=== PATIENT | male | born 1955 | race Caucasian/White ===

== ENCOUNTER 2016-11-17 11:58 | Emergency (ER) ==
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
--- NOTE | 2016-11-17 13:22 | EKG Report ---
Test Performed on : 11/17/2016 12:58:33 PM Test Reason : sob Blood Pressure : / mmHG Vent. Rate : 139 BPM Atrial Rate : 139 BPM P-R Int : 140 ms QRS Dur : 072 ms QT Int : 276 ms P-R-T Axes : 071 092 047 degrees QTc Int : 419 ms Sinus tachycardia. Possible Left atrial enlargement Rightward axis Left ventricular hypertrophy Abnormal ECG When compared with ECG of 30-JAN-2016 17:27, Sinus rhythm. has replaced Electronic ventricular pacemaker Vent. rate has increased BY 74 BPM Unconfirmed Result
[2016-11-17 13:24] LABS: MANUAL DIFF NEEDED? NO
[2016-11-17 13:25] LABS: BASO% 0.2 % (0.0-0.8); EOS# 0.14 X1000 (0.0-0.7); EOS% 1.3 % (0.0-10.0); HEMATOCRIT 48.1 % (42.0-52.0); HEMOGLOBIN 16.6 g/dL (14.0-18.0); IMM GRAN# 0.01 X1000 (0.0-0.04); IMM GRAN% 0.1 % (0.0-0.5); LYMPH# 2.51 X1000 (1.2-3.4); LYMPH% 24.1 % (20.5-51.1); MCH 32.1 PG (27-31); MCHC 34.5 g/dL (33-37); MONO# 0.58 X1000 (0.11-0.59); MONO% 5.6 % (1.7-9.3); MPV 10.8 FL (7.4-10.4); NEUT% 68.7 % (42.2-75.2); PLT 296 X1000 (130-400); RBC 5.17 XMIL (4.7-6.1)
[2016-11-17 13:28] LABS: URINE CULTURE PL NEEDED? NO; URINE SOURCE CLEAN CATCH
[2016-11-17 13:32] LABS: BILIRUBIN URINE NEGATIVE (NEGATIVE); BLOOD URINE NEGATIVE (NEGATIVE); CLARITY CLEAR (CLEAR); COLOR YELLOW; GLUCOSE URINE NEGATIVE (NEGATIVE); LEUKOCYTES URINE NEGATIVE (NEGATIVE); NITRITE URINE NEGATIVE (NEGATIVE); PROTEIN URINE NEGATIVE (NEGATIVE); SP GRAVITY URINE 1.015; UROBILINOGEN URINE NORMAL
--- NOTE | 2016-11-17 13:36 | Diag Imaging Result Document ---
PROCEDURE NAME: FLAT/UPRIGHT ABD/1 VIEW CHEST - 11/17/2016 SUPINE AND UPRIGHT ABDOMEN AND 1-VIEW CHEST: FINDINGS: There is gas visible in [id number] distended small bowel. There is gas visible in slightly distended colon. There is soft tissue fullness at the pelvis and lower midline abdomen which may relate to distended urinary bladder. There is no free air identified. Heart size is normal. There is slight tortuosity of the thoracic aorta. There is a tiny right upper lobe calcified granuloma from old granulomatous disease. The lungs, otherwise, appear clear. There is no pleural effusion or pneumothorax seen. IMPRESSION: 1. Nonspecific mild gaseous bowel distention. Soft tissue fullness at the pelvis and midline lower abdomen which may relate to distended urinary bladder. 2. No evidence of acute cardiopulmonary disease. Results discussed with Dr. Gomez. [facility]
[2016-11-17 13:39] LABS: AMYLASE 56 U/L (20-200); LIPASE 21 U/L (13-60)
[2016-11-17 13:43] LABS: AGAP 15; ALBUMIN 3.9 g/dL (3.5-5.0); ALKALINE PHOSPHATASE 104 U/L (32-122); BUN 9 mg/dL (8-22); CALCIUM 10.6 mg/dL (8.8-10.2); CHLORIDE 100 mmol/L (98-107); COSMO 272; GOT 16 U/L (10-34); GPT 16 U/L (10-44); SODIUM 137 mmol/L (136-145); TCO2 22 mmol/L (25-35); TOTAL PROTEIN 6.8 g/dL (6.3-8.3)
[2016-11-17 14:00] LABS: URINE EPITHELIAL CELLS <10 /HPF (<10)
--- NOTE | 2016-11-17 14:11 | Diag Imaging Result Document ---
PROCEDURE NAME: KUB ABDOMEN - 11/17/2016 PORTABLE AP SUPINE ABDOMEN: COMPARISON: Compared with an earlier exam the same day. FINDINGS: There is stable nonspecific mild gaseous bowel distention. There is decreased soft tissue fullness at the pelvis and midline lower abdomen. This may relate to interval decompression of the urinary bladder. IMPRESSION: Nonspecific mild gaseous bowel distention similar to prior. Decreased soft tissue fullness at the pelvis and midline lower abdomen which may relate to interval decompression of the urinary bladder.
[2016-11-17 15:01] VITALS: BP 130/92
== END 2016-11-17 15:00 | disposition home or self-care (01) ==
LOC: P.ED 11:58
DX: K59.03 Drug induced constipation (principal); T40.2X5A Adverse effect of other opioids, initial encounter; R33.9 Retention of urine, unspecified; R00.0 Tachycardia, unspecified; R10.84 Generalized abdominal pain; E78.5 Hyperlipidemia, unspecified; F17.210 Nicotine dependence, cigarettes, uncomplicated; Z71.6 Tobacco abuse counseling
CPT/HCPCS: 51798; 74000; 74022; 80053; 81001; 82150; 83690; 85025; 93005; 99284

== ENCOUNTER 2019-05-10 07:27 | Inpatient (IN) ==
--- NOTE | 2019-05-10 07:49 | PROVIDER DOCUMENTATION ---
HPI-General Adult - General Chief Complaint: Weakness Stated Complaint: Flank Pain Time Seen by Provider: 05/10/19 07:39 Source: patient, EMS Allergies/Adverse Reactions: Patient Allergies Allergy/AdvReac Type Severity Reaction Status Date / Time No Known Allergies Allergy Verified 06/25/17 10:54 Home Medications: Home Medication List Medication Instructions Recorded Confirmed Last Taken Type Amlodipine [Norvasc] 10 mg PO DAILY 06/25/17 06/25/17 Unknown History Ibuprofen [Motrin] 600 mg PO PRN PRN 06/25/17 06/25/17 Unknown History Lorazepam [Ativan] 1 mg PO QHS #7 tablet 06/25/17 Unknown Rx Oxycodone HCl/Acetaminophen 20 each PO 4XDAY 06/25/17 06/25/17 06/25/17 History [Oxycodon-Acetaminophen 7.5-325] SIMVAstatin [Zocor] 10 mg PO DAILY 06/25/17 06/25/17 Unknown History - History of Present Illness -Gen Adult Nature of Presenting Problems: A 63 Y/O MALE PRESENTS WITH C/O PAIN IN HIS LEGS FOR A MONTH. PER PT HE HAS BEEN OUT OF HIS PAIN MEDS AND HIS LEGS ARE HURTING. PER EMS, THE PT HAS HX OF CVA AND R HEMIPARESIS AND FOR THE PAST 1 MONTH HIS MOTILITY HAS SIGNIFICANTLY DECREASED AND IS MOSTLY BED BOUND. PT LIVES ALONE AND THIS MORNING REQUESTED HIS NEIGHBOR TO CALL 911 HE COULD NOT TOLERATE THE PAIN IN THE LEGS. DENIES NAY CP OR SOB OR FEVER OR CHILLS OR ABD PAIN OR NAUSEA OR VOMITING OR CONSTIPATION. PER NEIGHBOR DRINKS ABOUT 1 PINT OF ALCOHOL DAILY. Review of Systems - Adult - REVIEW OF SYSTEMS - ADULT Constitutional: denies: no symptoms reported Eyes: denies: no symptoms reported Ears, Nose, Mouth & Throat: denies: no symptoms reported Cardiovascular: denies: no symptoms reported Respiratory: denies: no symptoms reported Gastrointestinal: denies: no symptoms reported Genitourinary: denies: no symptoms reported Musculoskeletal: reports: see HPI Integumentary: denies: no symptoms reported Neurological: reports: see HPI Psychiatric: denies: no symptoms reported Endocrine: denies: no symptoms reported Hematologic/Lymphatic: denies: no symptoms reported Allergic/Immunologic: denies: no symptoms reported Past History - Adult - PAST MEDICAL HISTORY-ADULT Review of Records: reports: Old Records Reviewed, Nursing Assessment Review, Medications Reviewed, Social history reviewed & non-contributory. Major Childhood Illnesses: reports: denies history Cardiovascular: reports: hyperlipidemia Respiratory: reports: denies history Gastrointestinal: reports: denies history Obstetrical/Gynecological: reports: denies history Genitourinary: reports: denies history Musculoskeletal: reports: denies history Neurological: reports: denies history Endocrine/Immune: reports: denies history Other Conditions: reports: denies history - IMMUNIZATION STATUS Childhood Immunizations: See Nurse Assessment Flu Vaccine: See Nurse Assessment - FAMILY HISTORY Family History: reviewed, not pertinent Physical Exam-General - PHYSICAL EXAM-ADULT Initial Vital Signs Reviewed: Yes - CONSTITUTIONAL General Appearance: alert, no apparent distress, other (UNKEPT) - EYES Eyes: PERRL/EOMI - HEAD, EARS, NOSE, MOUTH & THROAT HENMT: normocephalic/atraumatic, normal ENT inspection. negative: moist mucous membranes, pharyngeal erythema - NECK Neck: supple - RESPIRATORY Respiratory: lungs clear, normal breath sounds, no respiratory distress, no accessory muscle use - CARDIOVASCULAR Cardiovascular: normal peripheral pulses, no edema, JVD, tachycardia - GASTROINTESTINAL (ABDOMEN) Abdominal Exam: non tender, soft, no pulsatile mass - MUSCULOSKELETAL Back Exam: no vertebral tenderness Extremity: no pedal edema, normal capillary refill, tenderness (ON PALPATION OF BOTH FEET, LEGS TENDER WITH MINIMAL PRESSURE). negative: non-tender Peripheral Pulses: radial (R): 2+, radial (L): 2+, dorsalis-pedis (R): 2+, dorsalis-pedis (L): 2+ - SKIN Integumentary: normal color, warm/dry - NEUROLOGIC Neurologic: grossly normal, motor weakness (ON THE RIGHT AT BASELINE) - PSYCHIATRIC Psych/Mental Status: normal mood/affect, normal thought content, normal thought process, oriented x 3, disheveled Progress - PLAN OF CARE/RESULTS Progress/Plan/Lab Results: Vital Signs - 8 hr 05/10/19 07:31 Temperature 98.2 F Pulse Rate 125 H Respiratory Rate 16 Blood Pressure 113/086 O2 Sat by Pulse Oximetry 96 Orders Category Date Time Status CHEST-1 VIEW [RAD] Stat Exams 05/10/19 07:39 Ordered CBC WITH ELECTRONIC DIFF [HEME] Stat Lab 05/10/19 07:39 Uncollected COMPREHENSIVE METABOLIC PANEL [CHEM] Stat Lab 05/10/19 07:39 Uncollected LACTATE, PLASMA [CHEM] Stat Lab 05/10/19 07:39 Uncollected UA NIMS W/REFLEX CULT PL [URINALYSIS] Stat Lab 05/10/19 07:39 Uncollected URINE DRUG SCREEN PL Stat Lab 05/10/19 07:41 Uncollected Result Diagrams: 05/10/19 07:35 05/10/19 07:35 - EKG 1 Time of EKG reading by physician:: 07:59 EKG Interpretation (*Must complete 3 of following elements*): Abnormal Rate: 123 Rhythm: NSR ST Wave: depressed Prior EKG Comparison: no prior EKG Comments: SINUS TACHYCARDIA AND INFERIO LATERAL ISCHEMIC CHANGES. NO STEMI - CONSULTS/PCP/HOSPITALIST Notification #1 *Consult/PCP/Hospitalist*: d/w Dr Potter and Angie ISLAS Time Discussed: 14:15 Consult Disposition: Admit Departure - Departure Date of Disposition Decision: 05/10/19 Time of Disposition Decision: 14:30 DIAGNOSIS: UTI (urinary tract infection), Alcohol abuse, Failure to thrive in adult Disposition: ADMITTED INPATIENT 09 Certified Medical Emergency: Emergent Condition: Stable - Critical Care Note This patient required my direct & personal management of CC.: No Attestation - Physician/ EDER Attestation Patient care was provided by Advanced Practice Provider:: No The physician spent face to face time with patient:: Yes Advanced Practice Provider documentation review:: Supervising physician onsite and consulted in the evaluation and care of this patient. The physician did have a face to face encounter with the patient.
[2019-05-10 08:08] LABS: BASO# 0.01 X1000 (0.0-0.2); BASO% 0.1 % (0.0-0.8); HEMATOCRIT 37.4 % (42.0-52.0); HEMOGLOBIN 12.8 g/dL (14.0-18.0); IMM GRAN# 0.03 X1000 (0.0-0.04); IMM GRAN% 0.4 % (0.0-0.5); LYMPH# 1.32 X1000 (1.2-3.4); LYMPH% 16.5 % (20.5-51.1); MCH 41.6 PG (27-31); MCHC 34.2 g/dL (33-37); MCV 121.4 FL (81-99); MONO# 0.55 X1000 (0.11-0.59); MONO% 6.9 % (1.7-9.3); MPV 10.9 FL (7.4-10.4); NEUT# 6.08 X1000 (1.4-6.5); NEUT% 76.1 % (42.2-75.2); PLT 147 X1000 (130-400); RBC 3.08 XMIL (4.7-6.1); RDW 14.5 % (11.5-14.5); WBC 7.99 X1000 (4.8-10.8)
[2019-05-10] MEDS ORDERED: M.V.I.-12 10 ML, FOLIC ACID 1 MG, MAGNESIUM SULFATE 1 GM, THIAMINE 100 MG in NS 1,000 ML IV ONE (08:16)
[2019-05-10 08:37] LABS: ESTIMATED GFR > 60
[2019-05-10 08:38] LABS: AGAP 33; ALBUMIN 4.2 g/dL (3.5-5.0); ALKALINE PHOSPHATASE 84 U/L (32-122); BUN 18 mg/dL (8-22); CALCIUM 8.7 mg/dL (8.8-10.2); CHLORIDE 82 mmol/L (98-107); COSMO 275; CREATININE 0.7 mg/dL (0.7-1.2); GLUCOSE 150 mg/dL (70-104); GOT 78 U/L (10-34); GPT 46 U/L (10-44); POTASSIUM 3.7 mmol/L (3.5-5.1); SODIUM 135 mmol/L (136-145); TCO2 20 mmol/L (25-35); TOTAL PROTEIN 6.4 g/dL (6.3-8.3)
[2019-05-10] MEDS ORDERED: CARDIZEM IV ONE (09:20)
[2019-05-10] MEDS ORDERED: LOPRESSOR IV ONE (09:40)
[2019-05-10 10:03] LABS: BILIRUBIN URINE NEGATIVE (NEGATIVE); BLOOD URINE 4+ (NEGATIVE); CLARITY CLEAR (CLEAR); COLOR AMBER; GLUCOSE URINE NEGATIVE (NEGATIVE); KETONE URINE 3+(Large) mg/dL (NEGATIVE); LEUKOCYTES URINE TRACE (NEGATIVE); NITRITE URINE POSITIVE (NEGATIVE); PH URINE 6.5; PROTEIN URINE 2+(100 mg/dL) mg/dL (NEGATIVE); SP GRAVITY URINE 1.015; UROBILINOGEN URINE 4 mg/dL
[2019-05-10 10:09] LABS: UR AMPHETAMINES QUAL NONE DETECTED (NONE DETECT); UR BARBITUATES QUAL NONE DETECTED (NONE DETECT); UR BENZODIAZEPIN QUAL NONE DETECTED (NONE DETECT); UR CANNABINOIDS QUAL NONE DETECTED (NONE DETECT); UR COCAINE QUAL NONE DETECTED (NONE DETECT); UR METHADONE QUAL NONE DETECTED (NONE DETECT); UR METHAMPHETAMINE QUAL NONE DETECTED (NONE DETECT); UR OPIATES QUAL NONE DETECTED (NONE DETECT); UR OXYCODONE QUAL NONE DETECTED (NONE DETECT); UR PCP QUAL NONE DETECTED (NONE DETECT); UR PROPOXYPHENE QUAL NONE DETECTED (NONE DETECT); UR TCA QUAL NONE DETECTED (NONE DETECT)
[2019-05-10 10:13] LABS: URINE BACTERIA 3+ /HFP; URINE EPITHELIAL CELLS <10 /HPF (<10); URINE RBC 20-40 /HPF (<10); URINE SOURCE CATH
--- NOTE | 2019-05-10 10:26 | Diag Imaging Result Doc PS360 ---
EXAM: CHEST-1 VIEW - 05/10/2019 HISTORY: LEG PAIN TECHNIQUE: Portable chest COMPARISON: 06/25/2017 FINDINGS: Heart size is normal. The lungs appear essentially clear. There is no pleural effusion or pneumothorax identified. IMPRESSION: No evidence of acute disease. Electronically signed by Ivan Martin 05/10/2019 10:24 AM
[2019-05-10] MEDS ORDERED: ROCEPHIN 1 GM in NS 50 ML IV ONE (12:52)
--- NOTE | 2019-05-10 13:23 | EKG Report ---
Test Performed on : 05/10/2019 09:37:00 AM Test Reason : CP Blood Pressure : / mmHG Vent. Rate : 121 BPM Atrial Rate : 178 BPM P-R Int : 000 ms QRS Dur : 078 ms QT Int : 322 ms P-R-T Axes : 000 061 074 degrees QTc Int : 457 ms Atrial flutter. with variable AV block. Nonspecific ST and T wave abnormality Abnormal ECG When compared with ECG of 10-MAY-2019 07:57, (Unconfirmed) Atrial flutter. has replaced Sinus rhythm. T wave inversion no longer evident in Inferior leads Nonspecific T wave abnormality, worse in Lateral leads Unconfirmed Result
[2019-05-10] MEDS ORDERED: ZOFRAN IV PRN (14:19)
[2019-05-10] MEDS ORDERED: NS 1,000 ML IV ONE (14:22)
[2019-05-10] MEDS ORDERED: ATARAX PO PRN (14:24)
[2019-05-10] MEDS ORDERED: BENTYL PO PRN (14:24)
[2019-05-10] MEDS ORDERED: ROBAXIN PO PRN (14:24)
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
[2019-05-10] MEDS: PROTONIX IV SCH (15:18)
[2019-05-10] MEDS: LIBRIUM PO SCH ×2 (15:18→20:17)
[2019-05-10] MEDS: NS 1,000 ML IV SCH ×2 (15:55→22:49)
[2019-05-10] MEDS: ATIVAN IV PRN (19:32)
--- NOTE | 2019-05-10 20:50 | HISTORY AND PHYSICAL ---
ADDENDUM: I saw the patient [id number] and fully agree with the assessment and plan of nurse practitioner, Cynthia Mg. This is a 63-year-old gentleman who is being admitted with urinary tract infection. We will provide him intravenous ceftriaxone and IV fluids along with banana bag since he is an alcohol user. He is also having protein calorie malnutrition, because of which we will provide him Ensure and regular diet. We will provide him supportive care and follow clinical course. cc: Shagufta Potter MD
[2019-05-11] MEDS: ATIVAN IV PRN (00:49)
[2019-05-11] MEDS: PROTONIX IV SCH ×2 (04:31→14:35)
[2019-05-11] MEDS: LIBRIUM PO SCH ×4 (04:32→22:02)
[2019-05-11] MEDS: NS 1,000 ML IV SCH ×2 (04:36→13:03)
[2019-05-11 06:34] LABS: BASO# 0.01 X1000 (0.0-0.2); BASO% 0.2 % (0.0-0.8); EOS# 0.04 X1000 (0.0-0.7); EOS% 0.9 % (0.0-10.0); HEMATOCRIT 27.5 % (42.0-52.0); HEMOGLOBIN 8.8 g/dL (14.0-18.0); IMM GRAN# 0.03 X1000 (0.0-0.04); IMM GRAN% 0.7 % (0.0-0.5); LYMPH% 26.1 % (20.5-51.1); MCH 39.8 PG (27-31); MCV 124.4 FL (81-99); MONO# 0.34 X1000 (0.11-0.59); MONO% 7.4 % (1.7-9.3); MPV 11.1 FL (7.4-10.4); NEUT# 2.98 X1000 (1.4-6.5); NEUT% 64.7 % (42.2-75.2); PLT 81 X1000 (130-400); RBC 2.21 XMIL (4.7-6.1); RDW 14.2 % (11.5-14.5)
[2019-05-11 06:56] LABS: AGAP 11; ALBUMIN 2.8 g/dL (3.5-5.0); ALKALINE PHOSPHATASE 58 U/L (32-122); BUN 10 mg/dL (8-22); CALCIUM 7.4 mg/dL (8.8-10.2); CHLORIDE 101 mmol/L (98-107); COSMO 282; CREATININE 0.4 mg/dL (0.7-1.2); ESTIMATED GFR > 60; GLUCOSE 94 mg/dL (70-104); GOT 46 U/L (10-34); GPT 26 U/L (10-44); MAGNESIUM 1.7 mg/dL (1.5-2.7); SODIUM 142 mmol/L (136-145); TCO2 29 mmol/L (25-35); TOTAL PROTEIN 4.7 g/dL (6.3-8.3)
[2019-05-11] MEDS ORDERED: KLOR-CON PO ONE (07:18)
--- NOTE | 2019-05-11 08:36 | EKG Report ---
Test Performed on : 05/10/2019 07:57:35 AM Test Reason : ER Blood Pressure : / mmHG Vent. Rate : 123 BPM Atrial Rate : 123 BPM P-R Int : 090 ms QRS Dur : 080 ms QT Int : 306 ms P-R-T Axes : 009 063 028 degrees QTc Int : 438 ms Sinus tachycardia. with short GA ST & T wave abnormality, consider inferior ischemia Abnormal ECG When compared with ECG of 25-JUN-2017 12:08, Vent. rate has increased BY [address] no longer elevated in Inferior leads T wave inversion now evident in Inferior leads Unconfirmed Result
--- NOTE | 2019-05-11 11:50 | EKG Report ---
Test Performed on : 05/11/2019 08:52:50 AM Test Reason : ER Blood Pressure : / mmHG Vent. Rate : 093 BPM Atrial Rate : 093 BPM P-R Int : 088 ms QRS Dur : 090 ms QT Int : 398 ms P-R-T Axes : 038 077 076 degrees QTc Int : 494 ms Sinus rhythm. with short MT Prolonged QT Abnormal ECG When compared with ECG of 10-MAY-2019 09:37, (Unconfirmed) Sinus rhythm. has replaced Atrial flutter. ST no longer depressed in Lateral leads Confirmed by Kiel Gomez MD ([id number]) on 05/21/2019 3:24:42 PM
[2019-05-11] MEDS: ROCEPHIN 1 GM in NS 50 ML IV SCH (13:03)
[2019-05-11] MEDS ORDERED: LASIX IV ONE (13:39)
[2019-05-11] MEDS: SODIUM CHLORIDE 0.9% INJ SCH (14:35)
--- NOTE | 2019-05-11 16:06 | Diag Imaging Result Doc PS360 ---
EXAM: CHEST-PORTABLE HISTORY: ronchi; sob TECHNIQUE: Single view of the chest was performed portably. COMPARISON: 05/10/2019 FINDINGS: The cardiomediastinal silhouette is within normal limits. The pulmonary vasculature is not congested. No infiltrate, effusion, or pneumothorax is appreciated. Patchy osteopenia is noted bilateral humeri. Correlate clinically. IMPRESSION: No acute cardiopulmonary abnormality is identified. Electronically signed by Rashida Pearce 05/11/2019 4:04 PM
--- NOTE | 2019-05-11 23:48 | ECHO REPORT ---
ORDER DATE: 05/11/2019 MEASUREMENTS: Septal thickness 1.1. Posterior wall thickness 1.1. Left ventricular internal diameter in diastole 4.3. Aortic root 3.5. Left atrium 2.8. SUMMARY: 1. Technically difficult study due to limited acoustic window quality. Intravenous echo contrast agent Optison was utilized to enhance endocardial definition. 2. Aortic valve is trileaflet and opens normally on 2-dimensional images. Peak gradient across aortic valve is less than 10 mmHg. There is mild aortic regurgitation. Mitral and tricuspid valves are without evidence of structural abnormality while pulmonic valve is not well demonstrated. There is trace tricuspid regurgitation. Aortic root is normal in size. 3. Normal left ventricular dimensions demonstrated. Estimated left ejection fraction appears to be at least 55%. No regional wall motion abnormalities are evident. Doppler suggests grade 1 left ventricular diastolic dysfunction. Left atrium, right atrium, right ventricle are normal in size with grossly preserved right ventricular systolic function. 4. No pericardial effusion. 5. Appearance of inferior vena cava suggests normal central venous pressure. CONCLUSIONS: 1. Technically difficult study. 2. Mild aortic regurgitation. 3. Estimated left ejection fraction at least 55% without regional wall motion abnormality evident. 4. Grade 1 left ventricular diastolic dysfunction suggested. cc: MD Elisa Sherman CRNP
[2019-05-12] MEDS: ATIVAN IV PRN ×2 (01:36→10:11)
[2019-05-12] MEDS: PROTONIX IV SCH ×2 (03:08→16:11)
[2019-05-12] MEDS: SODIUM CHLORIDE 0.9% INJ SCH ×2 (03:09→16:11)
--- NOTE | 2019-05-12 04:15 | PROGRESS NOTE ---
DATE: 05/11/2019 SUBJECTIVE: The patient is still somewhat confused. has no new complaints or questions. OBJECTIVE: Vital Signs: Temperature 97.7, pulse 90, respiratory rate 18, BP 105/67. General: The patient is easily arousable but falls back to sleep. He is in no current respiratory distress. HEENT: Normocephalic. Neck: Supple. Cardiovascular: Regular rate. Chest: Clear and nonlabored. Extremities: Moves all extremities. No edema. Neurologic: No focal changes although he does not follow commands. Skin: Warm and dry. No rashes. LABORATORY DATA: H H 8 and 27. ASSESSMENT: 1. Anemia. H H initially was 12 and 37, currently it is 8 and 27. Uncertain if this is a true drop or just due to fluid. He was not noted to have any bleeding in his stool, emesis or urine. 2. Urinary tract infection. 3. Metabolic acidosis. 4. Alcohol abuse and withdrawal. 5. History of cerebrovascular accident with right-sided hemiparesis. 6. Adult failure to thrive with generalized lower extremity weakness that has been worsening over the last several weeks. PLAN: We will continue the patient in the hospital. Continue Ativan as needed. We will continue to monitor for withdrawal. Physical therapy as the patient tolerates. We will recheck his hemoglobin and hematocrit in the a.m., and we will follow. cc: Neftaly Moore MD MTDD
[2019-05-12] MEDS: LIBRIUM PO SCH ×3 (06:08→22:25)
[2019-05-12 06:35] LABS: BASO# 0.03 X1000 (0.0-0.2); BASO% 0.6 % (0.0-0.8); PLT 103 X1000 (130-400); RDW 14.1 % (11.5-14.5)
[2019-05-12 06:39] LABS: AGAP 12; ALBUMIN 2.7 g/dL (3.5-5.0); ALKALINE PHOSPHATASE 67 U/L (32-122); BUN 7 mg/dL (8-22); CALCIUM 7.8 mg/dL (8.8-10.2); CHLORIDE 100 mmol/L (98-107); COSMO 280; CREATININE 0.3 mg/dL (0.7-1.2); ESTIMATED GFR > 60; GLUCOSE 85 mg/dL (70-104); GOT 45 U/L (10-34); GPT 26 U/L (10-44); POTASSIUM 3.2 mmol/L (3.5-5.1); SODIUM 142 mmol/L (136-145); TCO2 30 mmol/L (25-35); TOTAL PROTEIN 4.8 g/dL (6.3-8.3)
[2019-05-12 06:41] LABS: EOS# 0.08 X1000 (0.0-0.7); EOS% 1.7 % (0.0-10.0); HEMATOCRIT 28.2 % (42.0-52.0); HEMOGLOBIN 9.3 g/dL (14.0-18.0); IMM GRAN# 0.03 X1000 (0.0-0.04); IMM GRAN% 0.6 % (0.0-0.5); LYMPH# 1.21 X1000 (1.2-3.4); LYMPH% 25.4 % (20.5-51.1); MCH 41.3 PG (27-31); MCV 125.3 FL (81-99); MONO# 0.33 X1000 (0.11-0.59); MONO% 6.9 % (1.7-9.3); MPV 11.2 FL (7.4-10.4); NEUT# 3.08 X1000 (1.4-6.5); NEUT% 64.8 % (42.2-75.2); RBC 2.25 XMIL (4.7-6.1); WBC 4.76 X1000 (4.8-10.8)
[2019-05-12 07:00] LABS: LYMPHS 32 % (21-51); MONO 4 % (1-9); SEGS 64 % (42-75)
[2019-05-12 07:01] LABS: ANISOCYTOSIS 1+
[2019-05-12 07:03] LABS: MICROCYTOSIS OCCASIONAL
--- NOTE | 2019-05-12 07:41 | Diag Imaging Result Doc PS360 ---
EXAM: CHEST-PORTABLE HISTORY: sob TECHNIQUE: Portable chest COMPARISON: 05/11/2019 FINDINGS: The lungs are well expanded. No cardiomegaly. No pulmonary edema. No pleural effusions identified. Minimal increased markings in the right base. IMPRESSION: Atelectasis versus a tiny infiltrate in the right lung base. Electronically signed by Kirk Rodriguez 05/12/2019 7:39 AM
[2019-05-12] MEDS ORDERED: KLOR-CON PO ONE (08:59)
--- NOTE | 2019-05-12 09:58 | PROGRESS NOTE ---
DATE: 05/12/2019 SUBJECTIVE: The patient is a little bit more awake today. He is complaining of mild back pain. No other issues noted as per nursing staff overnight. OBJECTIVE: Vital Signs: Temperature 97.9 degrees, heart rate is 92, respiratory rate 18, blood pressure 126/76, O2 saturation 100% on 2 L nasal cannula. General Examination: This is a chronically ill-appearing 63-year-old female, lying in bed in no acute distress. Cardiovascular: S1, S2 heard. No murmurs, gallops, or rubs. Regular rate and rhythm. Respiratory: Clear bilaterally to auscultation. No work of breathing or using accessory muscles. Abdomen: Soft, nontender to palpation. Bowel sounds present. No organomegaly. Extremities: There are many superficial hematomas noted in both upper extremities. Neurological: Patient is easily arousable but falls back to sleep. Moves 4 extremities spontaneously. Speech is coherent. LABORATORY DATA: White cell count 4.726, hemoglobin 9.3, hematocrit 28.1, platelets 103,000. ASSESSMENT AND PLAN: 1. Anemia. I do not know if this is probably most likely from chronic disease. Hemoglobin at admission was 12 and 37 but now it is 9.3. I think it is most likely dilutional but the primary type of anemia most likely is from chronic illness. In any case, we will continue to monitor this patient closely. There has not been any bleeding in the stools, emesis or urine. 2. Urinary tract infection. Patient is on ceftriaxone. White cell count is normal. He is not spiking any fever. We will continue to monitor. 3. Alcohol abuse and withdrawal. The patient has been transferred to the intensive care unit because of possible alcohol withdrawal. So far, he has been more calmed down. He is receiving Librium in tapering doses. At this point, we will continue with the same management. 4. History of cerebrovascular accident with right-sided hemiparesis. Aware. We are going to continue with physical therapy. 5. Adult failure to thrive with generalized lower extremity weakness. That is one of the reasons why he was admitted to the hospital. In any case, Physical Therapy is working with him. We will continue to monitor. 6. Disposition. I think at this point we will keep this patient here in the intensive care unit for better monitoring. If patient is more calmed down, we will transfer this patient to the regular floor. cc: Micky Tracey MD
[2019-05-12] MEDS: ROCEPHIN 1 GM in NS 50 ML IV SCH (13:02)
[2019-05-13] MEDS: ATIVAN IV PRN (01:41)
[2019-05-13] MEDS: SODIUM CHLORIDE 0.9% INJ SCH (02:47)
[2019-05-13] MEDS: PROTONIX IV SCH ×2 (02:47→16:25)
[2019-05-13 06:02] LABS: BASO# 0.02 X1000 (0.0-0.2); BASO% 0.5 % (0.0-0.8); EOS# 0.06 X1000 (0.0-0.7); EOS% 1.4 % (0.0-10.0); HEMATOCRIT 30.6 % (42.0-52.0); HEMOGLOBIN 9.6 g/dL (14.0-18.0); IMM GRAN# 0.04 X1000 (0.0-0.04); IMM GRAN% 0.9 % (0.0-0.5); LYMPH# 1.34 X1000 (1.2-3.4); MCH 39.5 PG (27-31); MCHC 31.4 g/dL (33-37); MCV 125.9 FL (81-99); MONO# 0.33 X1000 (0.11-0.59); MONO% 7.6 % (1.7-9.3); MPV 10.9 FL (7.4-10.4); NEUT# 2.53 X1000 (1.4-6.5); NEUT% 58.6 % (42.2-75.2); PLT 142 X1000 (130-400); RBC 2.43 XMIL (4.7-6.1); RDW 14.3 % (11.5-14.5); WBC 4.32 X1000 (4.8-10.8)
[2019-05-13] MEDS: LIBRIUM PO SCH (06:19)
[2019-05-13 06:29] LABS: AGAP 13; BUN 8 mg/dL (8-22); CALCIUM 8.3 mg/dL (8.8-10.2); CHLORIDE 100 mmol/L (98-107); COSMO 279; CREATININE 0.3 mg/dL (0.7-1.2); ESTIMATED GFR > 60; GLUCOSE 89 mg/dL (70-104); POTASSIUM 3.6 mmol/L (3.5-5.1); SODIUM 141 mmol/L (136-145); TCO2 28 mmol/L (25-35)
[2019-05-13 06:30] LABS: ALBUMIN 2.9 g/dL (3.5-5.0); ALKALINE PHOSPHATASE 65 U/L (32-122); GOT 46 U/L (10-34); GPT 27 U/L (10-44)
[2019-05-13] MEDS: NS 1,000 ML IV SCH (08:00)
--- NOTE | 2019-05-13 09:17 | PROGRESS NOTE ---
DATE: 05/13/2019 SUBJECTIVE: Patient continues to be sleepy, definitely more compared with yesterday. No other issues noted as per nursing staff overnight. OBJECTIVE: Vital Signs: Temperature 99.2 degrees, heart rate 98, respiratory 16, blood pressure 112/70, O2 saturation 97% on room air. General examination: This is a chronically ill-appearing 63-year-old male, lying in bed in no acute distress. Cardiovascular exam: S1, S2 heard. No murmurs, gallops, or rubs. Regular rate and rhythm. Respiratory exam: Clear bilaterally to auscultation. No work of breathing or using accessory muscles. Abdomen: Soft, nontender to palpation. Bowel sounds present. No organomegaly. Extremities: Several superficial hematomas noted in both upper extremities. Neurological exam: Patient is more sleepy this morning. His speech is more coherent. Moves 4 extremities spontaneously. LABORATORY DATA: White cell count 4.32, hemoglobin 9.6, hematocrit 30.6, platelets 142 with normal BMP. ASSESSMENT AND PLAN: 1. Alcohol abuse and withdrawal. The patient has been 3 days in intensive care unit for this condition. He is receiving Librium, but I do not think at this point we are dealing with alcohol withdrawal. I think Librium is over sedating him, so at this point we are going to stop it, and monitor him in the unit without that medication. 2. Urinary tract infection. We will continue with ceftriaxone. 3. Anemia of chronic disease. Hemoglobin is stable. We will continue to monitor. 4. History of cerebrovascular accident with right-sided hemiparesis. Aware. The patient has been obtunded, so he was not able to work with physical therapy. Hopefully tomorrow he will be better, so the PT will be able to work with him. 5. Adult failure to thrive. Denies lower extremity weakness, aware. Physical therapy will try to work with him tomorrow. 6. Disposition: At this point, I am going to stop Librium to see if this patient is less sedated. At this point, we will monitor this patient closely in the intensive care unit. cc: Micky Tracey MD MTDD
[2019-05-13] MEDS: ROCEPHIN 1 GM in NS 50 ML IV SCH (11:40)
[2019-05-13] MEDS ORDERED: NS 1,000 ML IV SCH (12:15)
[2019-05-13] MEDS: M.V.I.-12 10 ML, FOLIC ACID 1 MG, MAGNESIUM SULFATE 1 GM, THIAMINE 100 MG in NS 1,000 ML IV SCH (13:52)
[2019-05-14] MEDS: NS 1,000 ML IV SCH ×2 (02:53→15:13)
[2019-05-14] MEDS: PROTONIX IV SCH ×2 (02:53→15:14)
[2019-05-14] MEDS: SODIUM CHLORIDE 0.9% INJ SCH (02:53)
[2019-05-14 06:18] LABS: BASO# 0.02 X1000 (0.0-0.2); BASO% 0.4 % (0.0-0.8); EOS# 0.06 X1000 (0.0-0.7); EOS% 1.2 % (0.0-10.0); HEMATOCRIT 30.3 % (42.0-52.0); HEMOGLOBIN 9.6 g/dL (14.0-18.0); IMM GRAN# 0.03 X1000 (0.0-0.04); IMM GRAN% 0.6 % (0.0-0.5); LYMPH# 1.45 X1000 (1.2-3.4); LYMPH% 28.3 % (20.5-51.1); MCH 39.8 PG (27-31); MCHC 31.7 g/dL (33-37); MCV 125.7 FL (81-99); MONO% 9.8 % (1.7-9.3); MPV 10.3 FL (7.4-10.4); NEUT# 3.06 X1000 (1.4-6.5); NEUT% 59.7 % (42.2-75.2); PLT 187 X1000 (130-400); RBC 2.41 XMIL (4.7-6.1); WBC 5.12 X1000 (4.8-10.8)
[2019-05-14 06:28] LABS: AGAP 12; ALBUMIN 2.6 g/dL (3.5-5.0); ALKALINE PHOSPHATASE 69 U/L (32-122); BUN 7 mg/dL (8-22); CALCIUM 7.9 mg/dL (8.8-10.2); CHLORIDE 106 mmol/L (98-107); COSMO 283; CREATININE 0.3 mg/dL (0.7-1.2); ESTIMATED GFR > 60; GLUCOSE 103 mg/dL (70-104); GOT 37 U/L (10-34); GPT 26 U/L (10-44); POTASSIUM 3.4 mmol/L (3.5-5.1); SODIUM 143 mmol/L (136-145); TCO2 25 mmol/L (25-35); TOTAL PROTEIN 4.9 g/dL (6.3-8.3)
[2019-05-14 06:42] LABS: EOS 1 % (1-10); LYMPHS 26 % (21-51); MONO 9 % (1-9); SEGS 64 % (42-75)
--- NOTE | 2019-05-14 09:59 | PROGRESS NOTE ---
DATE: 05/14/2019 SUBJECTIVE: The patient continues to be less sleepy, but is still slow. He has not receive any sedating medication over the last 24 hours. No acute issues noted as per nursing staff overnight. OBJECTIVE: Vital Signs: Temperature 98.2 degrees, heart rate 104, respiratory rate 18, blood pressure 138/83, O2 saturation 99% on room air. General: This is a chronically ill-appearing, 63- year-old, male, looking older than his stated age, lying in bed in no acute distress. Cardiovascular: S1, S2 heard. No murmurs, gallops, or rubs. Regular rate and rhythm. Respiratory: Clear bilaterally to auscultation. No work of breathing or using accessory muscles. Abdomen: Soft, nontender to palpation. Bowel sounds present. No organomegaly. Extremities: Several superficial hematomas noted in both upper extremities. Neurological: The patient continues to be sleepy, a little bit less than compared with yesterday, and answers basic questions. His speech is a little bit more coherent today. Moves all 4 extremities spontaneously. LABORATORY DATA: Reviewed. ASSESSMENT AND PLAN: 1. Alcohol abuse and withdrawal. During the last 3 days that he has been under my care, the patient has been sleepy and receiving Librium and Ativan as needed. Because of his mental status, we decided to stop Librium, and he is a little bit less sleepy today. I think we need to continue with that. 2. Urinary tract infection. Will continue with ceftriaxone. 3. Anemia of chronic disease. Hemoglobin is stable. Will continue to monitor. 4. Possible bronchitis. The patient, according to the nursing staff, has been spitting up some greenish sputum. I do not know if that is reason why he is still encephalopathic. I am going to check a CT of the chest without contrast, and will go from there. 5. History of cerebrovascular accident with right-sided hemiparesis. Aware. Physical Therapy has been consulted, but they were not able to work with him because he was very sleepy. Hopefully today, he will be able to work with him. 6. Adult failure to thrive. Physical Therapy on board. 7. Disposition. I think the patient is a little bit less sleepy. I think we will transfer him to a regular floor today. We are going to check a CT of the chest to see there is any lung infection, and will go from there. cc: Micky Trcaey MD
[2019-05-14] MEDS: ROCEPHIN 1 GM in NS 50 ML IV SCH (12:24)
[2019-05-14] MEDS: M.V.I.-12 10 ML, FOLIC ACID 1 MG, MAGNESIUM SULFATE 1 GM, THIAMINE 100 MG in NS 1,000 ML IV SCH (15:12)
[2019-05-15] MEDS: PROTONIX IV SCH ×2 (03:36→16:49)
[2019-05-15] MEDS: NS 1,000 ML IV SCH ×2 (03:41→22:15)
[2019-05-15 06:07] LABS: BASO# 0.02 X1000 (0.0-0.2); BASO% 0.3 % (0.0-0.8); EOS# 0.07 X1000 (0.0-0.7); EOS% 1.1 % (0.0-10.0); HEMATOCRIT 29.5 % (42.0-52.0); HEMOGLOBIN 9.3 g/dL (14.0-18.0); IMM GRAN# 0.02 X1000 (0.0-0.04); IMM GRAN% 0.3 % (0.0-0.5); LYMPH# 1.18 X1000 (1.2-3.4); LYMPH% 19.1 % (20.5-51.1); MCH 39.6 PG (27-31); MCHC 31.5 g/dL (33-37); MCV 125.5 FL (81-99); MONO# 0.71 X1000 (0.11-0.59); MONO% 11.5 % (1.7-9.3); NEUT# 4.19 X1000 (1.4-6.5); NEUT% 67.7 % (42.2-75.2); PLT 217 X1000 (130-400); RBC 2.35 XMIL (4.7-6.1); RDW 14.9 % (11.5-14.5); WBC 6.19 X1000 (4.8-10.8)
[2019-05-15 06:17] LABS: LYMPHS 20 % (21-51); MONO 10 % (1-9); SEGS 70 % (42-75)
[2019-05-15 06:57] LABS: AGAP 12; ALBUMIN 2.5 g/dL (3.5-5.0); ALKALINE PHOSPHATASE 68 U/L (32-122); BUN 4 mg/dL (8-22); CALCIUM 7.7 mg/dL (8.8-10.2); CHLORIDE 105 mmol/L (98-107); COSMO 275; CREATININE 0.2 mg/dL (0.7-1.2); ESTIMATED GFR > 60; GLUCOSE 111 mg/dL (70-104); GOT 34 U/L (10-34); GPT 26 U/L (10-44); POTASSIUM 3.3 mmol/L (3.5-5.1); SODIUM 139 mmol/L (136-145); TCO2 22 mmol/L (25-35); TOTAL PROTEIN 4.8 g/dL (6.3-8.3)
[2019-05-15] MEDS: NICODERM PATCH TD SCH (08:47)
[2019-05-15] MEDS ORDERED: KLOR-CON PO ONE (10:54)
--- NOTE | 2019-05-15 11:12 | PROGRESS NOTE ---
DATE: 05/15/2019 SUBJECTIVE: The patient denies having any acute complaints, but he is kind of slow to respond and has unchanged as compared to 5 days ago. OBJECTIVE: Vital Signs: Temperature 97.8 degrees, pulse 102 per minute, respiratory rate 12 per minute, blood pressure 132/79, pulse oximetry 98% on room air. General: The patient is awake and alert, although he does appear to be very slow to respond. Cardiovascular: First and second heart sounds are audible without any murmurs or gallops. Respiratory: No respiratory distress noted. Bilateral lung air entry is moderately decreased but there are no rales or rhonchi present on auscultation. Abdomen: Benign. DIAGNOSTIC DATA: CBC shows hemoglobin of 9.3 and hematocrit 29.5. This is unchanged as compared to previous lab results. Chemistry showed potassium levels of 3.3. The rest of the chemistry is nondiagnostic except for albumin level of 2.5 that is secondary to malnutrition. Urine examination done on 05/10/2019 showed 20 to 40 red blood cells and trace WBCs. IMPRESSION: 1. Urinary tract infection 2. Alcohol abuse. 3. Protein calorie malnutrition. 4. History of cerebrovascular accident in the past with right-sided weakness. PLAN: The patient will continue to be here at [facility] and will continue with ceftriaxone for his urinary tract infection. We are watching him for alcohol withdrawal and giving him Librium and Ativan as needed. His anemia has been stable and is primarily secondary to anemia of chronic disease. Also he has a history of cerebrovascular accident in the past with right-sided hemiparesis for which Physical Therapy has been consulted. I believe he will stay here for the next few days and most likely can get transferred to a rehabilitation facility sometime after Labor Day. cc: Shagufta Potter MD
[2019-05-15] MEDS: ROCEPHIN 1 GM in NS 50 ML IV SCH (12:16)
[2019-05-15] MEDS: M.V.I.-12 10 ML, FOLIC ACID 1 MG, MAGNESIUM SULFATE 1 GM, THIAMINE 100 MG in NS 1,000 ML IV SCH (14:12)
[2019-05-15] MEDS: SODIUM CHLORIDE 0.9% INJ SCH (16:49)
[2019-05-16] MEDS: PROTONIX IV SCH ×2 (03:51→15:50)
[2019-05-16 06:54] LABS: BASO# 0.01 X1000 (0.0-0.2); BASO% 0.2 % (0.0-0.8); EOS# 0.06 X1000 (0.0-0.7); EOS% 1.1 % (0.0-10.0); HEMATOCRIT 28.5 % (42.0-52.0); IMM GRAN# 0.02 X1000 (0.0-0.04); IMM GRAN% 0.4 % (0.0-0.5); LYMPH# 1.22 X1000 (1.2-3.4); LYMPH% 22.3 % (20.5-51.1); MCH 39.6 PG (27-31); MCHC 31.6 g/dL (33-37); MCV 125.6 FL (81-99); MONO# 0.96 X1000 (0.11-0.59); MONO% 17.5 % (1.7-9.3); NEUT# 3.21 X1000 (1.4-6.5); NEUT% 58.5 % (42.2-75.2); PLT 245 X1000 (130-400); RBC 2.27 XMIL (4.7-6.1); RDW 14.9 % (11.5-14.5); WBC 5.48 X1000 (4.8-10.8)
[2019-05-16 06:59] LABS: AGAP 8; ALBUMIN 2.5 g/dL (3.5-5.0); ALKALINE PHOSPHATASE 69 U/L (32-122); BUN 4 mg/dL (8-22); CALCIUM 7.7 mg/dL (8.8-10.2); CHLORIDE 110 mmol/L (98-107); COSMO 278; CREATININE 0.3 mg/dL (0.7-1.2); ESTIMATED GFR > 60; GLUCOSE 99 mg/dL (70-104); GOT 29 U/L (10-34); GPT 23 U/L (10-44); POTASSIUM 3.4 mmol/L (3.5-5.1); SODIUM 141 mmol/L (136-145); TCO2 23 mmol/L (25-35); TOTAL PROTEIN 4.6 g/dL (6.3-8.3)
[2019-05-16] MEDS ORDERED: KLOR-CON PO ONE ×2 (08:16→15:45)
[2019-05-16] MEDS: NICODERM PATCH TD SCH (08:42)
--- NOTE | 2019-05-16 11:37 | PROGRESS NOTE ---
DATE: 05/16/2019 SUBJECTIVE: Patient remains very lethargic and very slow to respond. No acute issues reported except for aspiration issues lately and patient not being able to swallow. OBJECTIVE: Vital Signs: Temperature 98.1 degrees, pulse 103 per minute, respiratory rate 12 per minute, blood pressure 140/80, pulse oximetry 97% on room air. General: Patient is awake but very lethargic. He is very slow to respond and has somewhat slurred speech because of weakness. Cardiovascular System: First and second heart sounds are audible without any murmurs or gallops. Respiratory System: No respiratory distress noted. Bilateral lung air entry is significantly decreased because of shallow inspirations. No rales or rhonchi are present, however. Abdomen: Abdomen is soft and nontender. Normal bowel sounds are present. DIAGNOSTIC DATA: CBC shows WBC count of 5.48, hemoglobin 9.0, hematocrit 28.5, and platelet count 245,000. In comparison, his hemoglobin and hematocrit was essentially the same as yesterday. Chemistry showed potassium level of 3.4. Albumin levels were found to be 2.5 and total protein 4.6. Rest of the chemistry is nondiagnostic. IMPRESSION: 1. Urinary tract infection. 2. Alcohol abuse. 3. Protein calorie malnutrition. 4. Inability to swallow and aspiration. 5. History of cerebrovascular accident with right-sided weakness. PLAN: The patient will be continued with ceftriaxone intravenously for his urinary tract infection. He will continue to be treated for alcohol withdrawal symptoms and I am going to put him n.p.o. because of aspiration risk. We will start him on Clinimix for nutrition intravenously and continue with physical therapy along with supportive care. We will also work with the social contact worker to see if we can get him transferred to a rehab facility sometime after Labor Day. cc: Shagufta Potter MD
--- NOTE | 2019-05-16 11:51 | PROGRESS NOTE ---
DATE: 05/16/2019 ADDENDUM: I spoke to patient's niece, Bee, over the phone who has the power of outsole scheduler. She stated that the patient's condition has been gradually worsening, and they are aware of that. She actually recently tried to buy burial insurance for him since they are not able to afford the burial if something happens to the patient. She also stated that the patient's daughter has been doing drugs and has been stealing money from the patient, and the home conditions are not stable. Furthermore, she stated that the patient has a lady who visits him and her name is Eve, but there is nobody who can take care of him at home at this time. She stated that she can be reached if needed, but she will be here at the hospital on Saturday to see the patient. cc: Shagufta Potter MD
[2019-05-16] MEDS: ROCEPHIN 1 GM in NS 50 ML IV SCH (12:26)
[2019-05-16] MEDS: CLINIMIX E 4.25%-5% SOLUTION 1,000 ML IV SCH (12:27)
[2019-05-16] MEDS: M.V.I.-12 10 ML, FOLIC ACID 1 MG, MAGNESIUM SULFATE 1 GM, THIAMINE 100 MG in NS 1,000 ML IV SCH (15:49)
[2019-05-16] MEDS: NS 1,000 ML IV SCH (15:49)
[2019-05-16 16:50] LABS: BE -0.1 mmoll (-3.0-3.0); BLOOD TYPE ARTERIAL; HCO3-(ACT) 24.7 mmoll (20.0-26.0); METHB 1.4 % (0.0-1.5); O2(CT) 11.5 mL/dL (15.0-23.0); PCO2(98.6) 34 mmHg (35-45); SAMPLE BLOOD; THB 9.4 g/dL (11.5-17.4); pH(98.6) 7.45 (7.35-7.45)
[2019-05-16 16:53] LABS: ALLEN TEST YES; MODALITY ROOM AIR; O2HB 86.5 % (95.0-99.0)
[2019-05-16 16:54] LABS: PO2(98.6) 49 mmHg (60-100)
[2019-05-16] MEDS: DUONEB (A & A) INH SCH ×2 (17:19→22:20)
[2019-05-16] MEDS: ZOSYN 3.375 GM in NS 50 ML IV SCH ×3 (18:08→22:27)
--- NOTE | 2019-05-16 19:36 | Diag Imaging Result Doc PS360 ---
EXAM: CHEST-PORTABLE INDICATION: Dyspnea; hypoxemia; Aspiration TECHNIQUE: One view COMPARISON: 05/12/2019 FINDINGS: The patient is slightly rotated. There is increased opacity at the left lung base behind the heart border suggesting possible developing infiltrate. The right lung is clear. There is no discrete pleural fluid collection or pneumothorax. The cardiomediastinal silhouette and central vasculature are grossly unremarkable. IMPRESSION: Possible developing infiltrate at the left lung base. Electronically signed by Roni Jackson 05/16/2019 7:34 PM
[2019-05-17] MEDS: CLINIMIX E 4.25%-5% SOLUTION 1,000 ML IV SCH ×2 (00:18→16:34)
[2019-05-17] MEDS: NS 1,000 ML IV SCH ×2 (03:29→16:34)
[2019-05-17] MEDS: PROTONIX IV SCH ×2 (03:30→16:43)
[2019-05-17] MEDS: DUONEB (A & A) INH SCH ×4 (04:06→22:31)
[2019-05-17] MEDS: ZOSYN 3.375 GM in NS 50 ML IV SCH ×4 (04:34→23:24)
[2019-05-17 07:13] LABS: LYMPHS 18 % (21-51); MONO 12 % (1-9); SEGS 70 % (42-75)
[2019-05-17 07:14] LABS: BASO# 0.02 X1000 (0.0-0.2); BASO% 0.3 % (0.0-0.8); EOS# 0.02 X1000 (0.0-0.7); EOS% 0.3 % (0.0-10.0); HEMATOCRIT 28.8 % (42.0-52.0); HEMOGLOBIN 9.1 g/dL (14.0-18.0); IMM GRAN# 0.01 X1000 (0.0-0.04); IMM GRAN% 0.1 % (0.0-0.5); LYMPH# 1.25 X1000 (1.2-3.4); LYMPH% 17.9 % (20.5-51.1); MCH 40.1 PG (27-31); MCHC 31.6 g/dL (33-37); MCV 126.9 FL (81-99); MONO# 1.02 X1000 (0.11-0.59); MONO% 14.6 % (1.7-9.3); MPV 9.7 FL (7.4-10.4); NEUT# 4.66 X1000 (1.4-6.5); NEUT% 66.8 % (42.2-75.2); PLT 261 X1000 (130-400); RBC 2.27 XMIL (4.7-6.1); RDW 15.1 % (11.5-14.5); WBC 6.98 X1000 (4.8-10.8)
[2019-05-17 07:26] LABS: AGAP 10; ALBUMIN 2.3 g/dL (3.5-5.0); ALKALINE PHOSPHATASE 80 U/L (32-122); BUN 5 mg/dL (8-22); CALCIUM 8.4 mg/dL (8.8-10.2); CHLORIDE 106 mmol/L (98-107); COSMO 272; CREATININE 0.3 mg/dL (0.7-1.2); ESTIMATED GFR > 60; GLUCOSE 112 mg/dL (70-104); GOT 29 U/L (10-34); GPT 22 U/L (10-44); MAGNESIUM 1.8 mg/dL (1.5-2.7); POTASSIUM 4.1 mmol/L (3.5-5.1); SODIUM 137 mmol/L (136-145); TCO2 21 mmol/L (25-35); TOTAL PROTEIN 4.9 g/dL (6.3-8.3)
[2019-05-17] MEDS: NICODERM PATCH TD SCH (10:21)
--- NOTE | 2019-05-17 13:27 | PROGRESS NOTE ---
DATE: 05/17/2019 SUBJECTIVE: As per nursing staff, the patient has been having labored breathing, complaining of shortness of breath. Upon my examination, his oxygen needs in comparing with 2 days ago when I have seen the last time, he is requiring Venturi mask, but 3 days ago, he was requiring only nasal cannula 2 L/minute. He refers no shortness of breath at rest. The patient is a poor historian though. OBJECTIVE: Vital Signs: Temperature 99.6 degrees, heart rate 17, respiratory rate 20, blood pressure 134/92, O2 saturation 100% on Venturi mask at 80 L/minute. General: This is a chronically ill-appearing and looking older than his stated age, 63-year-old, male, lying in bed in no acute distress. Cardiovascular: S1, S2 heard. Tachycardic, but no murmurs, gallops, or rubs noted. Respiratory: Coarse breath sounds noted in both pulmonary bases, as well as crackles. The patient is not using any accessory muscles or having work of breathing. Abdomen: Soft, nontender to palpation, nondistended. Bowel sounds present. No organomegaly. Extremities: There are several superficial hematomas noted in both upper extremities as well as edema. Lower extremities: No edema or clubbing noted. Neurological: The patient continues to be sleepy, although he answers some basic questions. Moves all 4 extremities spontaneously. LABORATORY DATA: White cell count 6.98, hemoglobin 9.1, hematocrit 28.8, platelets 261,000. Creatinine 0.3, glucose 112. ASSESSMENT AND PLAN: 1. Left lower lobe pneumonia. That is what we found out on an x-ray from yesterday. The patient is currently on Zosyn that was started yesterday. His oxygen needs started getting higher, according to nursing staff. Also, he was having labored breathing to the point that he looked like he needed to be coded yesterday. I think at this point, because we do not have any pulmonary backup here in [place], I prefer to send this patient to [facility], and consult Pulmonary, and will go from there. 2. Urinary tract infection. Will continue with ceftriaxone. 3. Alcohol abuse and withdrawal. That condition is stable at presentation. We thought that he might go into withdrawals, but during the 4 days in the intensive care unit, he has been calmed down, not combative or aggressive. Will continue to monitor this patient. 4. Anemia of chronic disease. Hemoglobin is stable. Will continue to monitor. 5. History of cerebrovascular accident with right-sided hemiparesis. Aware. 6. History of cerebrovascular accident with residual right-sided hemiparesis. Aware. Physical Therapy is supposed to work with him, although he has been confused in the last few days. 7. Adult failure to thrive. The patient has been placed on Clinimix, but unfortunately he has developed edema in both upper extremities. Will provide one dose of Lasix for excessive fluids. 8. Disposition. The patient is going to be transferred to [facility] for pulmonary evaluation. cc: Micky Tracey MD MTDD
[2019-05-17] MEDS: M.V.I.-12 10 ML, FOLIC ACID 1 MG, MAGNESIUM SULFATE 1 GM, THIAMINE 100 MG in NS 1,000 ML IV SCH (16:34)
--- NOTE | 2019-05-17 18:35 | Diag Imaging Result Doc PS360 ---
EXAM: CT THORAX W/CONTRAST INDICATION: Pneumonia TECHNIQUE: This exam was performed using automated exposure control, adjustment of mA or kV according to patient size, and/or use of iterative reconstruction technique. COMPARISON: None. FINDINGS: There is mild pulmonary emphysema at the lung apices. There is airspace consolidation involving the right lower lobe and the lingula indicating pneumonia. There are small bilateral pleural effusions and there is bibasilar atelectasis. There is focal scarring involving the posterior right lower lobe underlying an old rib fracture with adjacent pleural calcification. This scarring is causing mild tethering of the lung parenchyma to the posterior chest wall at the base. There are multiple calcified mediastinal and hilar lymph nodes indicating prior granulomatous disease. There is no evidence of significant mediastinal or hilar lymphadenopathy, otherwise. The heart is borderline to mildly prominent. Limited views of the upper abdomen reveals diffuse hepatic steatosis. The gallbladder is distended. The upper abdomen is essentially unremarkable, otherwise. IMPRESSION: 1.Airspace consolidation indicating pneumonia involving the right lower lobe and lingula near the base. 2.Bilateral small pleural effusions and bibasilar atelectasis. 3.Mild scarring at the right lung base posteriorly. 4.Other incidental/nonacute findings detailed above. Electronically signed by Roni Jackson 05/17/2019 6:32 PM
[2019-05-18] MEDS: CLINIMIX E 4.25%-5% SOLUTION 1,000 ML IV SCH ×2 (01:48→16:15)
[2019-05-18] MEDS: NS 1,000 ML IV SCH ×2 (02:33→05:58)
[2019-05-18] MEDS: PROTONIX IV SCH ×2 (02:42→16:15)
[2019-05-18] MEDS: DUONEB (A & A) INH SCH ×4 (03:47→21:24)
[2019-05-18] MEDS: ZOSYN 3.375 GM in NS 50 ML IV SCH ×3 (05:21→20:09)
[2019-05-18 07:40] LABS: BASO# 0.02 X1000 (0.0-0.2); BASO% 0.3 % (0.0-0.8); EOS# 0.03 X1000 (0.0-0.7); EOS% 0.5 % (0.0-10.0); HEMATOCRIT 27.5 % (42.0-52.0); HEMOGLOBIN 8.9 g/dL (14.0-18.0); IMM GRAN# 0.02 X1000 (0.0-0.04); IMM GRAN% 0.3 % (0.0-0.5); LYMPH# 1.15 X1000 (1.2-3.4); LYMPH% 18.9 % (20.5-51.1); MCH 39.9 PG (27-31); MCHC 32.4 g/dL (33-37); MCV 123.3 FL (81-99); MONO# 0.72 X1000 (0.11-0.59); MONO% 11.8 % (1.7-9.3); MPV 9.8 FL (7.4-10.4); NEUT# 4.15 X1000 (1.4-6.5); NEUT% 68.2 % (42.2-75.2); PLT 277 X1000 (130-400); RBC 2.23 XMIL (4.7-6.1); RDW 14.6 % (11.5-14.5); WBC 6.09 X1000 (4.8-10.8)
[2019-05-18 07:53] LABS: AGAP 9; ALBUMIN 2.3 g/dL (3.5-5.0); ALKALINE PHOSPHATASE 68 U/L (32-122); BUN 7 mg/dL (8-22); CALCIUM 7.9 mg/dL (8.8-10.2); CHLORIDE 106 mmol/L (98-107); COSMO 274; CREATININE 0.4 mg/dL (0.7-1.2); ESTIMATED GFR > 60; GLUCOSE 96 mg/dL (70-104); GOT 21 U/L (10-34); GPT 21 U/L (10-44); POTASSIUM 3.7 mmol/L (3.5-5.1); SODIUM 138 mmol/L (136-145); TCO2 23 mmol/L (25-35); TOTAL BILIRUBIN 0.38 mg/dL (0.20-1.00); TOTAL PROTEIN 4.6 g/dL (6.3-8.3)
[2019-05-18] MEDS: NICODERM PATCH TD SCH (08:28)
[2019-05-18] MEDS ORDERED: DUONEB (A & A) INH PRN (15:58)
[2019-05-18] MEDS: LASIX IV SCH (16:15)
[2019-05-18] MEDS: ZYVOX 600 MG/D5W 600 MG/300 ML IVPB IV SCH (16:15)
--- NOTE | 2019-05-18 17:02 | PULMONOLOGY CONSULTATION ---
DATE: 05/18/2019 REQUESTING PHYSICIAN: Dr. Chew. REASON FOR CONSULTATION: Pneumonia. HISTORY OF PRESENT ILLNESS: Mr. Briceno is a 63-year-old white male with history of prior stroke, ongoing tobacco use, and alcohol use, who was admitted to the hospital 05/10/2019 with generalized weakness and failure to thrive. The patient was ambulatory approximately 1 month ago but has had progressive stumbling gait and inability to get around. His oral intake has markedly diminished. His initial chest x-ray revealed no evidence of active disease on 05/10/2019. Chest x-ray 05/16/2019 revealed new infiltrate at the left base. Patient is a difficult historian. He has a somewhat flat affect. When pressed for answers, he does indicate he has some difficulty with swallowing and does choke on his food. Otherwise he is a difficult historian. PAST MEDICAL HISTORY: 1. CVA with right-sided weakness. He has been ambulatory. 2. Alcohol abuse. 3. Chronic pain syndrome. 4. Dyslipidemia. 5. History of cervical fusion. 6. Daily tobacco use/nicotine addiction. SOCIAL HISTORY: By report, he lives by himself. He has very little social support. FAMILY HISTORY: Not well documented. REVIEW OF SYSTEMS: Limited as outlined above. PHYSICAL EXAM: Reveals a frail, chronically ill-appearing male with a BMI less than 20. He has a flat affect. OBJECTIVE: Vital Signs: Maximum temperature in the last 24 hours 99.5 degrees, blood pressure 120/74, heart rate 100, respiratory rate 25, oxygen saturation 97% on Venturi mask. HEENT: Pupils are equal and reactive. Oropharynx appears clear. Neck: Supple. Chest: Reveals scattered rhonchi bilaterally. Cardiac: S1-S2. Abdomen: Soft. Extremities: Reveal 1+ peripheral tissue edema with some bruising. Neurologic: Cranial nerves appear to be grossly intact. Muscle testing is limited. LABORATORY: CT scan of the thorax reveals bilateral infiltrates in the lingula and right lower lobe with small bilateral effusions. Sodium 138, potassium 3.7, chloride 106, bicarbonate 23, BUN 7, creatinine 0.4, total protein 4.6, albumin 2.3. White blood count 6.09, hemoglobin 8.9, MCV markedly elevated at 123, platelet count 277,000. Urinalysis revealed 3+ ketones with 20 to 40 red blood cells per high-power field. IMPRESSION: A 63-year-old with 1. Dysphagia. 2. Aspiration pneumonia. 3. Severe protein calorie malnutrition. 4. Altered mental status. 5. Severe macrocytosis with anemia. 6. Severe deconditioning. 7. Inadequate caloric intake. RECOMMENDATIONS: 1. Check folate and B12 levels. 2. Continue current antibiotic regimen. 3. Consider alternative feeding source if the patient agrees. 4. Encourage alcohol cessation. 5. Encourage tobacco cessation. cc: Kaushal Abbott MD
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
--- NOTE | 2019-05-18 17:09 | PROGRESS NOTE ---
DATE: 05/18/2019 ADVANCED DIRECTIVE NOTE: SUBJECTIVE: Patient has no major issues. The patient is a hemiparetic and then possibly also paraplegic patient who has had progressive difficulty with his strength and now is bed-bound and cannot swallow. In any case he is going to be evaluated. He has pneumonia, which presumably is an aspiration type pneumonia, and we will continue to monitor. He still has significant pneumonia with significant morbidity and mortality. He also is not eating very well so I have discussed with his niece who reports that she is the power of microfilming document preparer, and we are looking at based on her conversations she said he did not want to be put on a ventilator. He did not want to have a feeding tube. He did not want aggressive measures and therefore is felt to be a DNR. We will continue supportive measures we are doing at this point. We will continue to follow closely. cc: Alexei Strong MD
--- NOTE | 2019-05-18 17:46 | Diag Imaging Result Doc PS360 ---
EXAM: CT HEAD W/O CONTRAST INDICATION: encephalopathy TECHNIQUE: This exam was performed using automated exposure control, adjustment of mA or kV according to patient size, and/or use of iterative reconstruction technique. COMPARISON: 06/25/2017 FINDINGS: There is focal low attenuation in the left frontal lobe that was not present on the previous study. There is no associated sulcal effacement. This appears to represent encephalomalacia that is probably from an infarct that occurred during the interval. Please correlate clinically. There is suggestion of mild white matter microangiopathy, stable. There is no definite acute infarct given the limited sensitivity of CT versus MRI. There is no discrete intracranial mass, mass effect, or intracranial hemorrhage. There is a small right maxillary sinus mucus retention cyst. Surrounding soft tissues and bony structures are essentially unremarkable, otherwise. IMPRESSION: Left frontal lobe low-attenuation with the appearance of encephalomalacia that was not present on the previous study. No definite acute pathology by CT. Electronically signed by Roni Jackson 05/18/2019 5:44 PM
[2019-05-18] MEDS: M.V.I.-12 10 ML, FOLIC ACID 1 MG, MAGNESIUM SULFATE 1 GM, THIAMINE 100 MG in NS 1,000 ML IV SCH (20:59)
[2019-05-19] MEDS: ZOSYN 3.375 GM in NS 50 ML IV SCH ×4 (01:49→21:10)
[2019-05-19] MEDS: ZYVOX 600 MG/D5W 600 MG/300 ML IVPB IV SCH ×2 (03:09→15:48)
[2019-05-19] MEDS: LASIX IV SCH ×2 (03:09→21:05)
[2019-05-19] MEDS: SODIUM CHLORIDE 0.9% INJ SCH ×2 (03:09→21:05)
[2019-05-19] MEDS: PROTONIX IV SCH ×2 (03:09→21:05)
[2019-05-19] MEDS: DUONEB (A & A) INH SCH ×4 (03:20→21:50)
[2019-05-19 03:44] LABS: ALLEN TEST YES; BE 3.2 mmoll (-3.0-3.0); BLOOD TYPE ARTERIAL; HCO3-(ACT) 27.4 mmoll (20.0-26.0); METHB 0.8 % (0.0-1.5); MODALITY VENTIMASK; O2(CT) 13.6 mL/dL (15.0-23.0); O2HB 94.3 % (95.0-99.0); PCO2(98.6) 36 mmHg (35-45); PO2(98.6) 66 mmHg (60-100); SAMPLE BLOOD; SAO2 96.8 % (95.0-100.0); THB 10.2 g/dL (11.5-17.4); pH(98.6) 7.48 (7.35-7.45)
[2019-05-19] MEDS: LOVENOX SUBQ SCH (05:16)
--- NOTE | 2019-05-19 07:12 | Diag Imaging Result Doc PS360 ---
EXAM: CHEST-PORTABLE 05/19/2019 HISTORY: dyspnea TECHNIQUE: AP portable at 0601 COMMENT: Compared to 05/16/2019 the opacity which was previously present in the left lower lobe has improved. IMPRESSION: Improved pneumonia left lower lobe. Electronically signed by Johnnie Bernabe 05/19/2019 7:09 AM
[2019-05-19 08:01] LABS: AGAP 10; ALB/GLOB RATIO 0.8; ALBUMIN 2.4 g/dL (3.5-5.0); ALKALINE PHOSPHATASE 122 U/L (32-122); BUN 6 mg/dL (8-22); CALCIUM 8.1 mg/dL (8.8-10.2); CHLORIDE 103 mmol/L (98-107); COSMO 276; CREATININE 0.4 mg/dL (0.7-1.2); ESTIMATED GFR > 60; GLUCOSE 116 mg/dL (70-104); GOT 31 U/L (10-34); GPT 22 U/L (10-44); POTASSIUM 3.6 mmol/L (3.5-5.1); SODIUM 139 mmol/L (136-145); TCO2 26 mmol/L (25-35); TOTAL BILIRUBIN 0.41 mg/dL (0.20-1.00); TOTAL PROTEIN 5.3 g/dL (6.3-8.3)
[2019-05-19] MEDS: NICODERM PATCH TD SCH (08:07)
[2019-05-19 08:12] LABS: BASO# 0.04 X1000 (0.0-0.2); BASO% 0.6 % (0.0-0.8); EOS# 0.04 X1000 (0.0-0.7); EOS% 0.6 % (0.0-10.0); HEMATOCRIT 29.9 % (42.0-52.0); HEMOGLOBIN 9.8 g/dL (14.0-18.0); LYMPH# 1.18 X1000 (1.2-3.4); LYMPH% 16.9 % (20.5-51.1); MCH 40.5 PG (27-31); MCHC 32.8 g/dL (33-37); MCV 123.6 FL (81-99); MONO# 0.74 X1000 (0.11-0.59); MONO% 10.6 % (1.7-9.3); MPV 9.9 FL (7.4-10.4); NEUT# 4.98 X1000 (1.4-6.5); NEUT% 71.3 % (42.2-75.2); PLT 299 X1000 (130-400); RBC 2.42 XMIL (4.7-6.1); RDW 14.5 % (11.5-14.5); WBC 6.98 X1000 (4.8-10.8)
[2019-05-19 08:39] LABS: BANDS 2 % (0-1); LYMPHS 22 % (21-51); MONO 14 % (1-9); SEGS 62 % (42-75)
[2019-05-19] MEDS: CLINIMIX E 4.25%-5% SOLUTION 1,000 ML IV SCH (12:01)
--- NOTE | 2019-05-19 14:26 | PROGRESS NOTE ---
DATE: 05/19/2019 SUBJECTIVE: Patient has no major complaints. OBJECTIVE: Blood pressure is 143/89, heart rate 98, respiratory rate 16, temperature 99 degrees, 100% on a Venturi. He is still extremely weak.Cardiovascular: Regular rhythm. Pulmonary: Bilateral breath sounds clear to auscultation. GI: Soft, nontender, nondistended. Bowel sounds are positive. LABORATORY DATA: White count 6.9, hemoglobin and hematocrit 9.8 and 29, platelets of 299,000, pH 7.48, pCO2 36, PaO2 66. Basic was normal. His folate level despite supplementation because he has been on a banana bag is borderline low but low. PROBLEM LIST: 1. Cavitary pneumonia. He has been on Zosyn and Zyvox. Today will be day 4 of Zosyn. Zyvox was started yesterday so day 2, continue to follow. There is improvement in his other issues but he is very weak. 2. Paraplegia. We will continue to treat CVA and follow. He is extremely weak. I just do not know what else we are going to do for hyperalimentation. He had a stroke and that since 2017. 3. Alcohol withdrawal. I think that is pretty much resolved. 4. Severe protein calorie malnutrition. He is on Clinimix. I am going to add liposin. He is folate deficient. Will supplement that and follow but realistically I just do not see that we can feed him safely. DISPOSITION: He is going to need some sort of long-term care either LTAC or rehab now. I discussed with family. They do not really want to be aggressive. This said no to a feeding tube but we may have to look at doing that at least temporarily I mean a long-term feeding tube but I mean a duo tube. We will get a palliative care consult and continue to meet with the family about their goals of care, yesterday was involved in more other things such as other issues so will continue to follow. Prognosis is guarded. cc: Alexei Strong MD [facility]
[2019-05-19] MEDS: LIPOSYN 20% 250 ML IV SCH (15:48)
--- NOTE | 2019-05-19 21:05 | PULMONOLOGY PROGRESS NOTE ---
DATE: 05/19/2019 SUBJECTIVE: The patient is arousable to alert, but he is not very interactive. He is without specific complaints. OBJECTIVE: The patient has been afebrile for the last 24 hours. Blood pressure 113/75, heart rate 93, respiratory rate 18, oxygen saturation 99% on 3 L per nasal cannula.HEENT: Pupils are equal and reactive. Oropharynx appears clear. Neck: Supple. Chest: Occasional rhonchi bilaterally, but with significant improvement compared to prior exams. Cardiac: S1, S2. Abdomen: Soft. Extremities: Without edema. LABORATORY AND DIAGNOSTIC DATA: Chest x-ray reveals improving pneumonia on the left. White blood count 6.98, hemoglobin 9.8, platelet count 299,000. Arterial blood gas reveals a pH of 7.48, pCO2 of 36, PO2 of 66. Sodium 139, potassium 3.6, chloride 103, bicarbonate 26, BUN 6, creatinine 0.4. B12 is elevated. Folate level is low at 8.9. IMPRESSION: A 63-year-old with: 1. Aspiration pneumonia with clinical improvement. 2. Severe protein-calorie malnutrition with poor oral intake. 3. Severe macrocytosis with folate deficiency. 4. Anemia. 5. Altered mental status with marginal improvement. 6. Severe deconditioning. PLAN: 1. Continue folate replacement. 2. Continue current antibiotic regimen. 3. Encourage p.o. intake. Agree with possible short-term feeding tube, if the family agrees. 4. Continue to encourage alcohol and smoking cessation. 5. Anticipate need for rehab/long-term placement. cc: Kaushal Abbott MD
[2019-05-19] MEDS: M.V.I.-12 10 ML, FOLIC ACID 1 MG, MAGNESIUM SULFATE 1 GM, THIAMINE 100 MG in NS 1,000 ML IV SCH (22:33)
[2019-05-20] MEDS: LIPOSYN 20% 250 ML IV SCH ×2 (02:04→11:23)
[2019-05-20] MEDS: DUONEB (A & A) INH SCH ×4 (03:25→21:45)
[2019-05-20 03:43] LABS: ALLEN TEST YES; BE 3.3 mmoll (-3.0-3.0); BLOOD TYPE ARTERIAL; HCO3-(ACT) 27.5 mmoll (20.0-26.0); METHB 1.6 % (0.0-1.5); O2(CT) 13.5 mL/dL (15.0-23.0); O2HB 95.5 % (95.0-99.0); PCO2(98.6) 35 mmHg (35-45); PO2(98.6) 79 mmHg (60-100); SAMPLE BLOOD; SAO2 98.9 % (95.0-100.0); pH(98.6) 7.49 (7.35-7.45)
[2019-05-20 03:44] LABS: MODALITY CANNULA
[2019-05-20] MEDS: ZOSYN 3.375 GM in NS 50 ML IV SCH ×4 (04:50→20:45)
[2019-05-20] MEDS: ZYVOX 600 MG/D5W 600 MG/300 ML IVPB IV SCH ×2 (04:51→15:27)
[2019-05-20] MEDS: MORPHINE IV PRN ×4 (05:01→23:27)
--- NOTE | 2019-05-20 06:45 | Diag Imaging Result Doc PS360 ---
CHEST-PORTABLE - 05/20/2019 INDICATION: dyspnea COMPARISON: 05/19/2019 FINDINGS: There is a stable small focal infiltrate in the right lung base. Stable slight infiltrate or atelectasis in the left lung base. Stable COPD. Heart size remains normal. No pneumothorax or pleural effusion. IMPRESSION: Stable faint bibasilar infiltrates/pneumonia. Electronically signed by Ovidio Steiner 05/20/2019 6:42 AM
[2019-05-20] MEDS: CLINIMIX E 4.25%-5% SOLUTION 1,000 ML IV SCH (07:26)
[2019-05-20] MEDS: LOVENOX SUBQ SCH (07:26)
[2019-05-20] MEDS: LASIX IV SCH (10:19)
[2019-05-20] MEDS: PROTONIX IV SCH ×2 (10:19→20:45)
[2019-05-20] MEDS: NICODERM PATCH TD SCH (11:23)
[2019-05-20 13:30] LABS: BASO# 0.03 X1000 (0.0-0.2); BASO% 0.4 % (0.0-0.8); EOS# 0.04 X1000 (0.0-0.7); EOS% 0.5 % (0.0-10.0); HEMATOCRIT 28.8 % (42.0-52.0); HEMOGLOBIN 9.3 g/dL (14.0-18.0); IMM GRAN# 0.02 X1000 (0.0-0.04); IMM GRAN% 0.3 % (0.0-0.5); LYMPH# 0.88 X1000 (1.2-3.4); MCH 39.6 PG (27-31); MCHC 32.3 g/dL (33-37); MCV 122.6 FL (81-99); MONO# 0.51 X1000 (0.11-0.59); MONO% 6.4 % (1.7-9.3); MPV 9.7 FL (7.4-10.4); NEUT% 81.4 % (42.2-75.2); PLT 286 X1000 (130-400); RBC 2.35 XMIL (4.7-6.1); RDW 14.8 % (11.5-14.5); WBC 7.98 X1000 (4.8-10.8)
[2019-05-20 13:35] LABS: LYMPHS 17 % (21-51); MONO 5 % (1-9); SEGS 78 % (42-75)
[2019-05-20 14:24] LABS: AGAP 10; ALB/GLOB RATIO 0.9; ALBUMIN 2.6 g/dL (3.5-5.0); ALKALINE PHOSPHATASE 76 U/L (32-122); BUN 7 mg/dL (8-22); CALCIUM 8.1 mg/dL (8.8-10.2); CHLORIDE 101 mmol/L (98-107); COSMO 271; CREATININE 0.4 mg/dL (0.7-1.2); ESTIMATED GFR > 60; GLUCOSE 109 mg/dL (70-104); GOT 34 U/L (10-34); GPT 26 U/L (10-44); POTASSIUM 3.1 mmol/L (3.5-5.1); SODIUM 136 mmol/L (136-145); TCO2 25 mmol/L (25-35); TOTAL BILIRUBIN 0.26 mg/dL (0.20-1.00); TOTAL PROTEIN 5.4 g/dL (6.3-8.3)
--- NOTE | 2019-05-20 14:48 | PROGRESS NOTE ---
DATE: 05/20/2019 SUBJECTIVE: Patient has no major complaints. OBJECTIVE: Vital signs: Blood pressure is 99/75, heart rate of 95, respiratory rate of 15, temperature 97.5 degrees, 100% on 3 L. Cardiovascular: Regular rate and rhythm. Pulmonary: Bilateral breath sounds. Clear to auscultation. GI: Soft, nontender, nondistended. Bowel sounds were positive. LABORATORY DATA: White count is 7, hemoglobin and hematocrit 9 and 28, platelets 286,000. PH 7.49, pCO2 35, PO2 79. I do not have any electrolytes today. PROBLEM LIST: 1. Cavitary pneumonia. He is on Zosyn and Zyvox, day 5, day 3. We will continue treatment and follow. Pulmonary is following. 2. History of cerebrovascular accident with chronic upper and lower extremity weakness. At this point, apparently he is eating. According to the nursing staff, he has had liquids without any choking and speech therapy recommends just mechanical soft diet, so we will continue that for right now. So, hopefully he does not need any other hyperalimentation. I am going to stop his banana bag and would consider stopping his Clinimix in the next couple days. 3. Severe protein-calorie malnutrition. As described, we will continue to encourage p.o. treatment. I discussed with the patient. He does not want a feeding tube. He said that himself and that was what niece had said as well. We are looking at outpatient options. He may be a SNF or LTAC candidate, so we are looking at that as an option. I am not sure if he is not amenable to other types of treatment. Hospice may be an option long- term, but we are going to continue working with the patient and discussing with radiology and we will see how he does. 4. Disposition. He will need rehab in the short and long-term. cc: Alexei Strong MD [facility]
[2019-05-20] MEDS: FOLIC ACID 1 MG in NS 50 ML IV SCH (16:43)
[2019-05-20] MEDS: SODIUM CHLORIDE 0.9% INJ SCH (20:45)
[2019-05-21] MEDS: CLINIMIX E 4.25%-5% SOLUTION 1,000 ML IV SCH ×2 (02:32→04:09)
[2019-05-21] MEDS: ZOSYN 3.375 GM in NS 50 ML IV SCH ×4 (02:33→22:24)
[2019-05-21] MEDS: ZYVOX 600 MG/D5W 600 MG/300 ML IVPB IV SCH ×2 (03:28→17:51)
[2019-05-21] MEDS: MORPHINE IV PRN ×2 (03:29→10:13)
[2019-05-21] MEDS: DUONEB (A & A) INH SCH ×4 (03:49→21:52)
--- NOTE | 2019-05-21 05:43 | PULMONOLOGY PROGRESS NOTE ---
DATE: 05/20/2019 SUBJECTIVE: Patient was sleeping on arrival. He is arousable. He is without specific complaints. OBJECTIVE: Vital Signs: The patient has been afebrile for the last 24 hours. Blood pressure 103/66, heart rate 99, respiratory rate 16, oxygen saturation 100% on nasal cannula. HEENT: Pupils are equal and reactive. Oropharynx appears clear. Neck: Supple. Chest: Reveals occasional rhonchi bilaterally with poor cough effort. Cardiac: S1, S2. Abdomen: Soft without hepatosplenomegaly. Extremities: Without edema. LABORATORIES: Chest x-ray reveals faint bibasilar infiltrates. White blood count 7.98, hemoglobin 9.3, platelet count 286,000. IMPRESSION: 1. A 63-year-old with aspiration pneumonia with continued clinical improvement. 2. Severe protein calorie malnutrition with improvement in hemoglobin level. 3. Severe macrocytosis with anemia with slowly improving macrocytic indices. 4. Severe deconditioning. 5. Slowly improving mental status. PLAN: 1. Continue antibiotic regimen. 2. Continue to encourage p.o. intake and vitamin replacement. 3. Encourage alcohol and smoking cessation. 4. Anticipate the need for a rehabilitation stay, but he is demonstrating some clinical improvement. cc: Kaushal Abbott MD
[2019-05-21] MEDS: LOVENOX SUBQ SCH (05:54)
--- NOTE | 2019-05-21 08:29 | PROGRESS NOTE ---
DATE: 05/21/2019 Mr. Briceno was sleeping comfortably, easy to arouse. He says that he is feeling a little bit better. OBJECTIVE: Vital Signs: He remains afebrile, temperature 98.3 degrees, pulse 94, respirations 20, blood pressure 143/80. HEENT: Pupils are equal and round. Lungs: Are clear in all lung marroquin. Cardiovascular: Regular rhythm and rate without murmur or S3. Urine output is 3100 mL. ASSESSMENT AND PLAN: 1. He presented with aspiration pneumonia, continued clinical improvement. Continue antibiotic regimen. 2. Severe protein calorie malnutrition with improvement in his hemoglobin level. We will continue his p.o. intake, vitamin replacement. 3. Severe macrocytosis with anemia, slowly improving macrocytic indices. 4. Severe deconditioning. Continue physical therapy. 5. Slow improving mental status. We will review his orders. Disposition: He will need to go to rehab, probably short-term and possibly long-term. His orders: He is on Clinimix 50 mL every hour, folic acid 1 mg daily, Lasix 40 mg IV daily, nicotine patch 21 mg patch daily, Protonix 40 mg IV q.12, thiamine 100 mg p.o. daily, Zosyn 3.375 g IV q.6, linezolid 600 mg IV q.12. REVIEW OF LABS: His lab from yesterday, white count 7980, hematocrit is 28, hemoglobin 9.3, platelet count 286,000. Sodium 136, potassium 3.1, chloride 101, BUN 7, creatinine 0.4. We will supplement some potassium. Probably need to check his magnesium too. cc: Arnold Flor MD
[2019-05-21] MEDS: SODIUM CHLORIDE 0.9% INJ SCH ×2 (10:14→22:24)
[2019-05-21] MEDS: PROTONIX IV SCH ×2 (10:14→22:24)
[2019-05-21] MEDS: VITAMIN B-1 PO SCH (10:14)
[2019-05-21] MEDS: KLOR-CON PO SCH (10:14)
[2019-05-21] MEDS: LIPOSYN 20% 250 ML IV SCH (10:15)
[2019-05-21] MEDS: LASIX IV SCH (10:15)
[2019-05-21] MEDS: NICODERM PATCH TD SCH (10:29)
[2019-05-21 12:32] LABS: BASO% 0.6 % (0.0-0.8); EOS% 0.9 % (0.0-10.0); HEMOGLOBIN 9.4 g/dL (14.0-18.0); IMM GRAN% 0.2 % (0.0-0.5); LYMPH# 1.27 X1000 (1.2-3.4); LYMPH% 15.4 % (20.5-51.1); MCH 39.8 PG (27-31); MCHC 32.4 g/dL (33-37); MCV 122.9 FL (81-99); MONO% 5.2 % (1.7-9.3); MPV 9.6 FL (7.4-10.4); NEUT# 6.39 X1000 (1.4-6.5); NEUT% 77.7 % (42.2-75.2); PLT 330 X1000 (130-400); RBC 2.36 XMIL (4.7-6.1); RDW 14.8 % (11.5-14.5); WBC 8.23 X1000 (4.8-10.8)
[2019-05-21 12:33] LABS: BASO# 0.05 X1000 (0.0-0.2); EOS# 0.07 X1000 (0.0-0.7); IMM GRAN# 0.02 X1000 (0.0-0.04); MONO# 0.43 X1000 (0.11-0.59)
[2019-05-21 12:47] LABS: BANDS 2 % (0-1); LYMPHS 7 % (21-51); MONO 6 % (1-9); SEGS 85 % (42-75)
[2019-05-21 13:27] LABS: AGAP 11; BUN 6 mg/dL (8-22); CHLORIDE 104 mmol/L (98-107); COSMO 279; CREATININE 0.4 mg/dL (0.7-1.2); ESTIMATED GFR > 60; GLUCOSE 127 mg/dL (70-104); POTASSIUM 3.5 mmol/L (3.5-5.1); SODIUM 140 mmol/L (136-145); TCO2 25 mmol/L (25-35)
[2019-05-21] MEDS: FOLIC ACID 1 MG in NS 50 ML IV SCH (16:39)
[2019-05-22] MEDS: DUONEB (A & A) INH SCH (03:34)
[2019-05-22] MEDS: ZOSYN 3.375 GM in NS 50 ML IV SCH ×2 (03:51→10:24)
[2019-05-22] MEDS: ZYVOX 600 MG/D5W 600 MG/300 ML IVPB IV SCH (06:10)
[2019-05-22] MEDS: LOVENOX SUBQ SCH (06:10)
[2019-05-22 06:13] LABS: HEMATOCRIT 29.4 % (42.0-52.0); HEMOGLOBIN 9.3 g/dL (14.0-18.0); WBC 7.38 X1000 (4.8-10.8)
[2019-05-22 06:14] LABS: BASO# 0.05 X1000 (0.0-0.2); BASO% 0.7 % (0.0-0.8); EOS# 0.06 X1000 (0.0-0.7); EOS% 0.8 % (0.0-10.0); LYMPH# 1.27 X1000 (1.2-3.4); LYMPH% 17.2 % (20.5-51.1); MCH 38.8 PG (27-31); MCHC 31.6 g/dL (33-37); MCV 122.5 FL (81-99); MONO# 0.38 X1000 (0.11-0.59); MONO% 5.1 % (1.7-9.3); MPV 9.8 FL (7.4-10.4); NEUT# 5.62 X1000 (1.4-6.5); NEUT% 76.2 % (42.2-75.2); PLT 306 X1000 (130-400); RDW 15.1 % (11.5-14.5)
[2019-05-22 06:40] LABS: AGAP 10; BUN 4 mg/dL (8-22); CALCIUM 8.6 mg/dL (8.8-10.2); CHLORIDE 106 mmol/L (98-107); COSMO 274; CREATININE 0.4 mg/dL (0.7-1.2); ESTIMATED GFR > 60; GLUCOSE 97 mg/dL (70-104); POTASSIUM 4.1 mmol/L (3.5-5.1); SODIUM 139 mmol/L (136-145); TCO2 23 mmol/L (25-35)
--- NOTE | 2019-05-22 07:26 | PULMONOLOGY PROGRESS NOTE ---
DATE: 05/21/2019 SUBJECTIVE: The patient has a flat affect. He is eating some of his meals up to 75%. OBJECTIVE: Vital Signs: The patient is afebrile. Blood pressure 100/64, heart rate 97, respiratory rate 18, oxygen saturation 99% on 2 L per nasal cannula. HEENT: Pupils are equal and reactive. Oropharynx appears clear. Neck: Supple. Chest: Reveals occasional rhonchi bilaterally. Cardiac: S1-S2. Abdomen: Soft. Extremities: Reveal trace to 1+ tissue edema. IMPRESSION: A 63-year-old, with: 1. Aspiration pneumonia. 2. Severe protein-calorie malnutrition. 3. Severe deconditioning. 4. Macrocytic anemia. 5. Mental status, improving, but he continues to have a flat affect. PLAN: 1. Continue to encourage p.o. intake with vitamin replacement. 2. Continue current antibiotic regimen. 3. Encourage alcohol and tobacco cessation, due to alcohol use and nicotine addiction. 4. Anticipate need for rehab stay. cc: Kaushal Abbott MD [facility]
[2019-05-22] MEDS: CLINIMIX E 4.25%-5% SOLUTION 1,000 ML IV SCH (07:47)
[2019-05-22] MEDS ORDERED: CALMOSEPTINE OINTMENT TOP PRN (10:20)
[2019-05-22] MEDS: NICODERM PATCH TD SCH (10:23)
[2019-05-22] MEDS: SODIUM CHLORIDE 0.9% INJ SCH (10:25)
[2019-05-22] MEDS: PROTONIX IV SCH (10:25)
[2019-05-22] MEDS: LASIX IV SCH (10:25)
[2019-05-22] MEDS: LIPOSYN 20% 250 ML IV SCH (10:32)
[2019-05-22] MEDS: VITAMIN B-1 PO SCH (10:33)
[2019-05-22] MEDS: KLOR-CON PO SCH (10:33)
[2019-05-22] MEDS ORDERED: ZOSYN ONE (10:51)
[2019-05-22 11:46] VITALS: BP 131/75
--- NOTE | 2019-05-22 11:57 | DISCHARGE SUMMARY ---
ADMISSION DATE: 05/10/2019 DISCHARGE DATE: 05/22/2019 DISCHARGE DIAGNOSIS: 1. Aspiration pneumonia. 2. Urinary tract infection. 3. Alcohol abuse with withdrawal. 4. Extreme generalized deconditioning. 5. Protein calorie malnutrition. HOSPITAL COURSE: Mr. Briceno is a 63-year-old gentleman, who has history of CVA and alcohol abuse, presented to the hospital emergency room with bilateral lower extremity pain and inability to walk along with having generalized weakness. He was admitted to the hospital after we was diagnosed with a urinary tract infection. He was treated with IV ceftriaxone and supportive care was provided to him. He also received Clinimix IV because of poor nutrition. He was noted to have aspiration with pneumonia during this hospital admission after which he was treated with IV Zosyn. He has completed 10 days therapy with Zosyn and his pneumonia has now resolved. He still has generalized weakness and deconditioning because of which he will need to transfer to a long-term acute care facility. DISCHARGE MEDICATIONS: 1. Furosemide 40 mg orally once daily. 2. Potassium chloride 20 mEq orally once daily. 3. Omeprazole 40 mg orally once daily. 4. Lorazepam 1 mg IV q.4 hours as needed for agitation. 5. Enoxaparin 30 mg subcutaneously once daily. 6. Albuterol and Atrovent nebulization treatments every 6 hours. 7. Nicotine patch 21 mg every 24 hours. FOLLOWUP: Will be by the new facility's medical underwriter or attending physician. CONDITION: Stable. DISPOSITION: Long-term acute care facility in [place], [place]. cc: Shagufta Potter MD
== END 2019-05-22 12:44 | DRG 689 ==
LOC: P.ED 07:27 → P.ICU 15:36 → SUATTDRO 15:36 → P.ICU 05-14 03:32 → P.MEDSURG 05-14 18:15 → 2N 05-17 15:34 → 4N 05-20 18:44
PROVIDERS: ATTEND Internal Medicine